=== PATIENT | female | born 1960 | race Caucasian/White ===

== ENCOUNTER 2017-12-02 05:23 | Emergency (ER) | payer OTHER ==
[2017-12-02] MEDS ORDERED: Ketorolac INJ* 30 MG/ML 1 ML VIAL IV PUSH ONE (05:46)
--- NOTE | 2017-12-02 05:46 | ED ---
HPI Chest Pain - HPI Summary HPI Summary: This patient is a 57 year old F presenting to [facility] accompanied by her with a chief complaint of constant mid-sternal chest pain since 04:30 this morning. The patient reports that the pain is a pressure and that it woke her up this morning. The patient rates the pain 2/10 in severity. Symptoms aggravated by nothing. Symptoms alleviated by nothing. Patient denies nausea, vomiting, diaphoresis, shortness of breath, lightheadedness, or dizziness. Patient notes that she has hx of low potassium and GERD. - History of Current Complaint Chief Complaint: EDChestPainROMI Time Seen by Provider: 12/02/17 05:34 Hx Obtained From: Patient Hx Last Menstrual Period: August 2012 Onset/Duration: Started Hours Ago - 1 hour ago, Atraumatic, Still Present Timing: Constant, Lasting Hours - 1 hour Initial Severity: Mild Current Severity: Mild Pain Intensity: 4 Pain Scale Used: 0-10 Numeric Chest Pain Location: Mid Sternal Chest Pain Radiates: No Character: Pressure/Squeezing Aggravating Factor(s): Nothing Alleviating Factor(s): Nothing Associated Signs and Symptoms: Positive: Chest Pain. Negative: Dizziness, Shortness of Breath, Lightheadedness, Diaphoresis, Nausea, Vomiting - Allergy/Home Medications Allergies/Adverse Reactions: Allergies Allergy/AdvReac Type Severity Reaction Status Date / Time sulfamethoxazole Allergy Swelling Verified 12/02/17 05:42 [From Bactrim] tetracycline Allergy Swelling Verified 12/02/17 05:43 trimethoprim [From Bactrim] Allergy Swelling Verified 12/02/17 05:42 Home Medications: Home Medications Spironolactone TAB* [Aldactone TAB 25 MG*] 25 mg PO DAILY 12/02/17 [History Confirmed 12/02/17] PMH/Surg Hx/FS Hx/Imm Hx Endocrine/Hematology History: Denies: Hx Diabetes, Hx Thyroid Disease Cardiovascular History: Denies: Hx Hypertension Respiratory History: Denies: Hx Asthma, Hx Chronic Obstructive Pulmonary Disease (COPD) GI History: Reports: Hx Gastroesophageal Reflux Disease Denies: Hx Ulcer - Cancer History Hx Chemotherapy: No Hx Radiation Therapy: No Infectious Disease History: No Infectious Disease History: Reports: Hx Shingles - 1991 Denies: Hx Clostridium Difficile, Hx Hepatitis, Hx Human Immunodeficiency Virus (HIV), Hx of Known/Suspected MRSA, Hx Tuberculosis, Hx Known/Suspected VRE , Hx Known/Suspected VRSA, History Other Infectious Disease, Traveled Outside the [place] in Last 30 Days - Family History Known Family History: Positive: Hypertension Negative: Diabetes - Social History Alcohol Use: None Substance Use Type: Reports: None Smoking Status (MU): Never Smoked Tobacco Review of Systems Negative: Skin Diaphoresis Positive: Chest Pain Negative: Shortness Of Breath Negative: Vomiting, Nausea Neurological: Negative - negative dizzines, negative lightheadedness All Other Systems Reviewed And Are Negative: Yes Physical Exam - Summary Physical Exam Summary: Appearance: Well-appearing, Well-nourished, lying in bed comfortably Skin: Warm, dry, no obvious rash Eyes: sclera anicteric, no conjunctival pallor ENT: mucous membranes moist, pharynx appears normal Neck: Supple, nontender Respiratory: Clear to auscultation, no signs of respiratory distress Cardiovascular: Normal S1, S2. No murmurs. Normal distal pulses in tibial and radial bilaterally. Abdomen: Soft, nontender, normal active bowel sounds present Musculoskeletal: Normal, Strength/ROM Intact Neurological: A&Ox3, awake and alert, mentation is normal, speech is fluent and appropriate Psychiatric: affect is normal, does not appear anxious or depressed Triage Information Reviewed: Yes Vital Signs On Initial Exam: Initial Vitals Temp Pulse Resp BP Pulse Ox 97.3 F 63 15 147/93 97 12/02/17 05:25 12/02/17 05:25 12/02/17 05:25 12/02/17 05:25 12/02/17 05:25 Vital Signs Reviewed: Yes Diagnostics - Vital Signs Vital Signs Temp Pulse Resp BP Pulse Ox 12/02/17 05:25 97.3 F 63 15 147/93 97 - Laboratory Result Diagrams: 12/02/17 06:15 12/02/17 06:15 Lab Statement: Any lab studies that have been ordered have been reviewed, and results considered in the medical decision making process. - EKG 05:34 Cardiac Rate: NL - at 65 bpm EKG Rhythm: Sinus Rhythm ST Segment: Normal Ectopy: None EKG Interpretation: NSR at 65 bpm, nml intervals, no ischemic changes Chest Pain Course/Dx - Diagnoses Provider Diagnoses: Chest pain Discharge - Sign-Out/Discharge Documenting (check all that apply): Sign-Out Patient Signing out patient TO: Claus Freeman Receiving patient FROM: Uvaldo Chávez - Discharge Plan Condition: Stable Disposition: HOME Patient Education Materials: Chest Pain (ED) Referrals: Jessica Steen MD [Medical Doctor] - (Please follow up in 1-3 days.) Additional Instructions: Follow up with Dr. Steen in 1-3 days. RETURN TO THE EMERGENCY DEPARTMENT FOR CHANGING OR WORSENING SYMPTOMS. - Billing Disposition and Condition Condition: STABLE Disposition: Home - Attestation Statements Document Initiated by Scribe: Yes Documenting Scribe: Trang Brown Provider For Whom Danika is Documenting (Include Credential): Uvaldo Chávez MD Scribe Attestation: Trang Blancas, rogelioed for Uvaldo Chávez MD on 12/03/17 at 0140. Scribe Documentation Reviewed: Yes Provider Attestation: The documentation as recorded by the scribe, Trang Brown accurately reflects the service I personally performed and the decisions made by me, Uvaldo Chávez MD
[2017-12-02 06:24] LABS: ABS Basophils 0 10^3/ul (0-0.2); ABS Eosinophils 0.1 10^3/ul (0-0.6); ABS Lymphocytes 1.3 10^3/ul (1.0-4.8); ABS Monocytes 0.4 10^3/ul (0-0.8); ABS Neutrophils 3.8 10^3/ul (1.5-7.7); ABS Nucleated RBC 0 10^3/ul; Eosinophil % 1.5 % (0-6); Hematocrit 41 % (35-47); Hemoglobin 14.1 g/dl (12.0-16.0); Lymphocyte % 23.4 % (25-47); Mean Corpuscular HGB Conc 35 g/dl (31-36); Mean Corpuscular Hemoglobin 29 pg (27-31); Mean Corpuscular Volume 84 fL (80-97); Mean Platelet Volume 8.5 um3 (7.4-10.4); Nucleated Red Blood Cells % 0.1; Platelet Count 185 10^3/ul (150-450); Red Cell Distribution Width 13 % (10.5-15); White Blood Count 5.7 10^3/ul (3.5-10.8)
[2017-12-02 06:51] LABS: EGFR Non-African American 86.6 (>60)
--- NOTE | 2017-12-02 08:31 | ED ---
Progress - Progress Note Progress Note: This patient was signed out from Dr. Chávez to Dr. Freeman, pending second troponin. Second troponin was 0.00. I discussed results with patient. The patient is hemodynamically stable upon discharge. The patient will be d/c with CP and instructions to follow up with Dr. Steen (cardiology). The patient agrees with this plan. Return precautions given. Re-Evaluation - Re-Evaluation First Eval Re-Evaluation Time: 08:34 Comment: The patient is feeling a lot better. Discussed discharge plan and the patient understands and agrees. Course/Dx - Diagnoses Provider Diagnoses: Chest pain Discharge - Sign-Out/Discharge Documenting (check all that apply): Patient Departure - Discharge Plan Condition: Stable Disposition: HOME Patient Education Materials: Chest Pain (ED) Referrals: Jessica Steen MD [Medical Doctor] - (Please follow up in 1-3 days.) Additional Instructions: Follow up with Dr. Steen in 1-3 days. RETURN TO THE EMERGENCY DEPARTMENT FOR CHANGING OR WORSENING SYMPTOMS. - Billing Disposition and Condition Condition: STABLE Disposition: Home - Attestation Statements Document Initiated by Scribe: Yes Documenting Scribe: Keith Lau Provider For Whom Nayelyibindiana is Documenting (Include Credential): Claus Freeman MD Scribe Attestation: I, Keith Lau, scribed for Claus Freeman MD on 12/03/17 at 1046. Scribe Documentation Reviewed: Yes Provider Attestation: The documentation as recorded by the Keith ballesteros accurately reflects the service I personally performed and the decisions made by me, Claus Freeman MD
[2017-12-02 08:48] VITALS: BP 123/76
--- NOTE | 2017-12-02 10:09 | RAD ---
INDICATION: Chest pain COMPARISON: Most recent comparison chest x-rays dated February 14, 2013 TECHNIQUE: Single AP portable view of the chest was obtained. FINDINGS: Image quality is compromised due to the relative inferiority of a portable chest x-ray. The heart and mediastinum exhibit normal size and contour. The lungs are grossly clear. There is no evidence of a large pleural effusion. Visualized bones are normal for the patient's age. IMPRESSION: No radiographic evidence for acute cardiopulmonary abnormality on this portable chest x-ray. R1
== END 2017-12-02 08:47 | disposition home or self-care (01) ==
LOC: ED 05:23
DX: R07.89 Other chest pain (principal); K21.9 Gastro-esophageal reflux disease without esophagitis; Z88.3 Allergy status to other anti-infective agents
CPT/HCPCS: 36415; 71045; 80053; 84484; 85025; 93005; 96374; 99283; J1885